=== PATIENT | female | born 1995 | race Asian ===

== ENCOUNTER 2024-04-10 22:50 | Emergency (ER) | payer OTHER ==
[~2024-04-10] VITALS: Ht 152.4 cm; Wt 52.3 kg
[2024-04-11 00:16] VITALS: BP 137/79; PULSE 88; RESP 16; TEMP 98.1
== END 2024-04-11 00:23 | disposition home or self-care (01) ==
LOC: EMS 22:52
DX: R06.4 Hyperventilation (principal); I10 Essential (primary) hypertension; Z88.2 Allergy status to sulfonamides; Z88.6 Allergy status to analgesic agent
CPT/HCPCS: 99281; Z7502